=== PATIENT | male | born 1985 | race Caucasian/White ===

== ENCOUNTER 2019-04-13 14:25 | Emergency (ER) | payer OTHER ==
[~2019-04-13] VITALS: Ht 170.2 cm; Wt 60.3 kg
--- NOTE | 2019-04-13 14:51 | NUR ---
ERMD AT BEDSIDE FOR MSE
[2019-04-13] MEDS ORDERED: BENZONATATE 100 MG CAPSULE PO ONE (15:00)
[2019-04-13] MEDS ORDERED: BENZONATATE 100 MG CAPSULE ONE (15:03)
[2019-04-13 15:29] VITALS: BP 115/65
--- NOTE | 2019-04-13 15:29 | NUR ---
Patient discharged to home in stable conditon. Written and verbal after care instructions given. Patient verbalizes understanding of instructions. Patient ambulated with stable gait.
== END 2019-04-13 15:30 | disposition home or self-care (01) ==
LOC: ER 14:25
DX: J20.9 Acute bronchitis, unspecified (principal)
CPT/HCPCS: A4663

== ENCOUNTER 2019-04-29 18:50 | Emergency (ER) | payer OTHER ==
[~2019-04-29] VITALS: Ht 167.6 cm; Wt 57.2 kg
--- NOTE | 2019-04-29 19:10 | NUR ---
Dr. Brunson at bedside for MSE
[2019-04-29] MEDS ORDERED: PANTOPRAZOLE SODIUM 40 MG TABLET.DR PO ONE ×2 (19:15→19:21)
[2019-04-29] MEDS ORDERED: LIDOCAINE VISCUS 2% 15 ML UDC MM ONE (19:15)
[2019-04-29] MEDS ORDERED: MAG HYDROX/AL HYDROX/SIMETH 30 ML LIQUID UDC PO ONE (19:15)
[2019-04-29] MEDS ORDERED: MAG HYDROX/AL HYDROX/SIMETH 30 ML LIQUID UDC ONE (19:21)
[2019-04-29] MEDS ORDERED: LIDOCAINE VISCUS 2% 15 ML UDC ONE (19:21)
[2019-04-29 19:37] LABS: BASOPHILS % (AUTO) 0.6 % (0.0-2.0); EOSINOPHILS # (AUTO) 0.3 K/uL (0.0-0.7); EOSINOPHILS % (AUTO) 5.1 % (0.0-7.0); HEMATOCRIT 41.8 % (36.7-47.1); HEMOGLOBIN 14.3 g/dL (12.5-16.3); LYMPHOCYTES % (AUTO) 29.7 % (20.5-51.5); MEAN CORPUSCULAR HEMOGLOBIN 29.5 uug (23.8-33.4); MEAN CORPUSCULAR HGB CONC 34 g/dL (32.5-36.3); MEAN CORPUSCULAR VOLUME 86.4 fL (73.0-96.2); MONOCYTES # (AUTO) 0.6 K/uL (2.0-10.0); MONOCYTES % (AUTO) 8.6 % (0.0-11.0); NEUTROPHILS # (AUTO) 3.8 K/uL (1.8-8.9); PLATELET COUNT (AUTO) 202 K/uL (152-348); RED BLOOD CELL COUNT(AUTO) 4.84 MIL/uL (4.06-5.63); WHITE BLOOD COUNT (AUTO) 6.8 K/uL (3.6-10.2)
--- NOTE | 2019-04-29 19:37 | NUR ---
Patient states abdominal pain getting better about 6/10 on the pain scale per patient. Denies any other disomfort at this time
[2019-04-29 19:41] LABS: CREATININE 1.1 mg/dL (0.6-1.3); POTASSIUM 4.2 mmol/L (3.5-5.1)
[2019-04-29 19:46] LABS: BILIRUBIN,DIRECT 0.1 mg/dL (0.0-0.2); BILIRUBIN,TOTAL 0.5 mg/dL (0.2-1.0); TOTAL PROTEIN, SERUM 7.6 g/dL (6.4-8.2)
--- NOTE | 2019-04-29 20:05 | NUR ---
Patient discharged to home in stable conditon. Written and verbal after care instructions given. Patient verbalizes understanding of instructions. Patient ambulating with steady gait
[2019-04-29 20:06] VITALS: BP 112/73
== END 2019-04-29 20:05 | disposition home or self-care (01) ==
LOC: ER 18:50
DX: K29.70 Gastritis, unspecified, without bleeding (principal)
CPT/HCPCS: 36415; 83690; 85025; A4663